=== PATIENT | female | born 1940 | race Caucasian/White ===

== ENCOUNTER 2018-04-06 06:29 | Emergency (ER) | payer OTHER ==
[~2018-04-06] VITALS: Ht 170.2 cm; Wt 83.9 kg
[~2018-04-06 06:29] MED LIST: CALCIUM; CARDIZEM CD240 MG; HYDROCHLOROTHIA25 M1 PO; LIPITOR10 MG PO; NEPHROCAPS SOFT1 CAP PO; PREMARIN0.625 MG PO; PROTONIX40 MG PO; SIMVASTATIN40 MG; TAZTIA; TAZTIA XT; ULTRAM 50MG TAB50 MG PO; ZANTAC150 M2 PO; ZOFRAN ODT4 MG PO
[2018-04-06 07:46] LABS: ABSOLUTE LYMPHOCYTES 1.5 thou/uL (0.8-5.3); ABSOLUTE NEUTROPHILS 4.6 thou/uL (1.6-8.1); BASOPHILS 0.6 %
[2018-04-06 07:48] LABS: ABSOLUTE EOSINOPHILS 0.3 thou/uL (0.0-0.7); ABSOLUTE MONOCYTES 0.4 thou/uL (0.0-1.2); EOSINOPHILS 3.9 %; HEMATOCRIT 38.5 % (37.0-47.0); HEMOGLOBIN 13.1 gm/dL (12.0-15.0); LYMPHOCYTES 21.8 %; MCH 32.4 pg (26.0-34.0); MCHC 34.1 g/dL (28.0-37.0); MONOCYTES 6.6 %; MPV 9.4 fl. (7.2-11.1); NUCLEATED RBCS 0 /100WBC; PLATELET COUNT* 237 thou/uL (150-400); POLYS 67.1 %; RBC 4.06 mil/uL (4.20-5.00); RDW-CV 13.5 % (10.5-14.5); WBC 6.8 thou/uL (4.0-11.0)
[2018-04-06 08:05] LABS: CALCIUM 8.6 mg/dL (8.5-10.1); CREATININE 0.8 mg/dL (0.6-1.3); POTASSIUM 3.5 mmol/L (3.5-5.1)
[2018-04-06 08:09] LABS: ALBUMIN 3.4 g/dL (3.4-5.0); TOTAL BILIRUBIN 0.4 mg/dL (<0.1-1.0); TOTAL PROTEIN 6.5 g/dL (6.4-8.2)
[2018-04-06 08:35] VITALS: BP 140/62
== END 2018-04-06 08:36 | disposition home or self-care (01) ==
LOC: M.ERS 06:29
PROVIDERS: Family Medicine
DX: K59.00 Constipation, unspecified (principal); I10 Essential (primary) hypertension; E78.5 Hyperlipidemia, unspecified; Z90.710 Acquired absence of both cervix and uterus

== ENCOUNTER → 2018-05-18 | Outpatient (CLI) | payer OTHER | LOC: M.LAB 01:06 | DX: Z01.812 Encounter for preprocedural laboratory examination (principal) ==